=== PATIENT | male | born 1950 | race American Indian/Alaskan Native ===

== ENCOUNTER 2022-04-14 09:41 | Emergency (ER) | payer MEDICARE ==
[2022-04-14 10:58] LABS: Basophils % (Auto) 0.5 % (0.0-1.8); Eosinophils # (Auto) 0.2 K/mm3 (0.0-0.4); Hematocrit 40.5 % (35.5-45.6); Hemoglobin 13.6 gm/dl (11.8-15.2); Lymphocytes # (Auto) 1.7 K/mm3 (1.2-5.4); Lymphocytes % (Auto) 39.3 % (13.4-35.0); Mean Corpuscular HGB Conc 34 % (32-34); Mean Corpuscular Volume 98 fl (84-94); Monocytes # (Auto) 0.4 K/mm3 (0.0-0.8); Monocytes % (Auto) 8.7 % (0.0-7.3); Platelet Count 236 K/mm3 (140-440); Red Blood Count 4.13 M/mm3 (3.65-5.03); Red Cell Distribution Width 13.3 % (13.2-15.2)
[2022-04-14 11:07] LABS: BUN/Creatinine Ratio 14; Blood Urea Nitrogen 11 mg/dL (9-20); Calcium 9.9 mg/dL (8.4-10.2); Hemolysis Index 3
[2022-04-14 12:32] LABS: Amphetamine Screen,Urine Negative; Cannabinoid Screen,Urine Negative
[2022-04-14 13:02] LABS: Benzodiazepines Screen,Urine Positive; Cocaine Screen,Urine Positive; Methadone Screen,Urine Positive; Opiate Screen,Urine Positive
[2022-04-14 13:39] LABS: Bilirubin,Urine NEG (Negative); Blood,Urine NEG (Negative); Color,Urine Amber (Yellow); Hyaline Casts,Urine 2 /LPF; Mucus,Urine 3+ /HPF; Protein,Urine <15 mg/dL mg/dL (Negative)
--- NOTE | 2022-04-14 16:33 | Emergency Department Report ---
ED Medical Clearance HPI - General Chief complaint: Medical Clearance Stated complaint: CLEARANCE FOR DETOX Source: patient Mode of arrival: Ambulatory - History of Present Illness Initial comments: 71-year-old male presents to the ED for medical clearance for drug abuse. Patient states that he is going to be going to the [facility] for opiate abuse. Patient states that he started currently taking methadone that he retrieved from [facility]. 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 He denies any chest pain shortness of breath at present time. Patient denies any medical history. He states that he does have a history of bradycardia. 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 He states he normally seek medical treatment at [facility]. Patient is alert and oriented x3. No acute distress noted. Ill appearance noted. Allergies/Adverse reactions: Allergies Allergy/AdvReac Type Severity Reaction Status Date / Time No Known Allergies Allergy Verified 04/14/22 10:01 ED Review of Systems ROS: Stated complaint: CLEARANCE FOR DETOX Other details as noted in HPI Constitutional: denies: chills, fever Eyes: denies: eye pain, eye discharge, vision change ENT: denies: ear pain, throat pain Respiratory: denies: cough, shortness of breath, wheezing Cardiovascular: denies: chest pain, palpitations Endocrine: no symptoms reported Gastrointestinal: denies: abdominal pain, nausea, diarrhea Genitourinary: denies: urgency, dysuria Musculoskeletal: denies: back pain, joint swelling, arthralgia Skin: denies: rash, lesions Neurological: denies: headache, weakness, paresthesias Psychiatric: denies: anxiety, depression Hematological/Lymphatic: denies: easy bleeding, easy bruising ED Past Medical Hx - Past Medical History Additional medical history: substance abuse - Surgical History Additional Surgical History: hernia repair - Social History Smoking Status: Current Every Day Smoker Substance Use Type: Prescribed ED Physical Exam - General Limitations: No Limitations General appearance: alert, in no apparent distress - Head Head exam: Present: atraumatic, normocephalic - Eye Eye exam: Present: normal appearance - ENT ENT exam: Present: mucous membranes moist - Neck Neck exam: Present: normal inspection - Respiratory Respiratory exam: Present: normal lung sounds bilaterally. Absent: respiratory distress - Cardiovascular Cardiovascular Exam: Present: regular rate, normal rhythm. Absent: systolic murmur, diastolic murmur, rubs, gallop - GI/Abdominal GI/Abdominal exam: Present: soft, normal bowel sounds - Rectal Rectal exam: Present: deferred - Extremities Exam Extremities exam: Present: normal inspection - Back Exam Back exam: Present: normal inspection - Neurological Exam Neurological exam: Present: alert, oriented X3 - Psychiatric Psychiatric exam: Present: normal affect, normal mood - Skin Skin exam: Present: warm, dry, intact, normal color. Absent: rash ED Course Vital Signs 04/14/22 04/14/22 09:57 17:02 Temperature 98.1 F 97.9 F Pulse Rate 46 L 56 L Respiratory 16 16 Rate Blood Pressure 137/68 Blood Pressure 132/72 [Left] O2 Sat by Pulse 98 99 Oximetry ED Medical Decision Making - Lab Data Result diagrams: 04/14/22 10:40 04/14/22 10:40 - EKG Data Rate: bradycardia - EKG Data Interpretation: nonspecific ST-T wave arnaud - Medical Decision Making 71-year-old male presents to the ED for medical clearance for drug abuse. Patient states that he is going to be going to the [facility] for opiate abuse. Patient states that he started currently taking methadone that he retrieved from [facility]. 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 He denies any chest pain shortness of breath at present time. Patient denies any medical history. He states that he does have a history of bradycardia. 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 He states he normally seek medical treatment at [facility]. Patient is alert and oriented x3. No acute distress noted. Ill appearance noted. Physical examination is unremarkable. Patient heart rate at time of discharge was HR 56, BP 179/89. Rechecked the patient is resting quietly quietly and comfortable and feeling better. I discussed the results of diagnostic study, my clinical impression and the plan for further treatment with the patient. Patient agrees with plan and discharge at this present time. All question addressed. I have given the patient instruction regarding a diagnosis ,expectation ,follow- up and return precaution. I explained to the patient that emergent condition may arise and to return to the ED for new worsen and any new persisting condition. I have explained the importance of following up with the primary care physician or referral physician listed below has instructed. The patient verbalized understanding of discharge instruction. ED Disposition Clinical Impression: Normal physical examination, routine Disposition: 01 HOME / SELF CARE / HOMELESS Is pt being admited?: No Does the pt Need Aspirin: No Condition: Stable Instructions: Medical Screening Exam Additional Instructions: You are cleared for treatment at [facility] Return to the ED for any worsening symptoms Referrals: [facility] [Outside] - 3-5 Days Time of Disposition: 16:45
[2022-04-14 17:09] VITALS: BP 132/72
--- NOTE | 2022-04-15 10:04 | Electrocardiograph Report ---
[facility] Test Date: 2022-04-14 Test Time: 10:04:33 Pat Name: LINDA HELMS Department: Room: Gender: M [employer]: UBALDO : 1950 Requested By: ED DOC Order Number: [id number] Reading MD: Benton Mccoy Measurements Intervals [place] Rate: 43 P: 66 LA: 172 QRS: -42 QRSD: 127 T: 0 QT: 522 QTc: 440 Interpretive Statements Sinus bradycardia Nonspecific IVCD with LAD Probable anterolateral infarct, old No previous ECG available for comparison Electronically Signed On 04-15-2022 10:03:27 EDT by Benton Mccoy
== END 2022-04-14 17:02 | disposition home or self-care (01) ==
LOC: ED 09:41
DX: Z00.00 Encounter for general adult medical examination without abnormal findings (principal); F17.200 Nicotine dependence, unspecified, uncomplicated; Z79.899 Other long term (current) drug therapy
CPT/HCPCS: 36415; 80048; 80307; 80320; 81001; 85025; 93005; 99283; G0480